=== PATIENT | female | born 1960 | race Caucasian/White ===

== ENCOUNTER 2018-08-29 11:48 | Emergency (ER) | payer OTHER ==
[2018-08-29 12:05] VITALS: TEMP 97.9; BMI 34.5
--- NOTE | 2018-08-29 12:59 | PDOC ---
History of Present Illness - General Chief Complaint: Headache Stated Complaint: LOWER BACK PAIN/ COUGHING History Source: Patient Exam Limitations: No Limitations - History of Present Illness Initial Comments: 08/29/18 12:59 57 yo F with a hx of HLD and HTN presents to the emergency department with right flank pain since Wednesday. Per the patient, she has never had pain like this before and denies hx of nephrolithiasis. Pain described as sharp, 7/10, constant, non radiating, without worsening and aggravating factors. She states that she has had a cough and headache since then and thinks she has the flu. Headache is frontal non radiating. When she coughs, she states a small amount of urine expels which is new for her. Denies trauma, dysuria, hematuria, increased urinary frequency, abdominal pain, diarrhea, hematochezia, and cholelithiasis/cholecystitis/cholecystectomy. Endorses hx of tubal ligation. Allergies: PCN Social: Denies tobacco, alcohol, and substance abuse. 08/29/18 13:02 Past History - Past Medical History Allergies/Adverse Reactions: Allergies Allergy/AdvReac Type Severity Reaction Status Date / Time Penicillins Allergy Verified 08/29/18 12:00 Home Medications: Ambulatory Orders Lisinopril 10 mg PO DAILY 08/29/18 Sulfamethoxazole/Trimethoprim [Bactrim Ds -] 1 tab PO BID #10 tablet 08/29/18 COPD: No HTN: Yes - Reproductive History Is Patient Now?: No - Immunization History Immunization Up to Date: Yes - Suicide/Smoking/Psychosocial Hx Smoking History: Never smoked Hx Alcohol Use: No Drug/Substance Use Hx: No *Physical Exam - Vital Signs Last Vital Signs Temp Pulse Resp BP Pulse Ox 97.9 F 70 18 171/54 H 100 08/29/18 12:01 08/29/18 12:01 08/29/18 12:01 08/29/18 12:01 08/29/18 12:01 ED Treatment Course - LABORATORY CBC & Chemistry Diagram: 08/29/18 13:50 08/29/18 13:50 *DC/Admit/Observation/Transfer Diagnosis at time of Disposition: UTI (urinary tract infection) Qualifiers: Urinary tract infection type: site unspecified Hematuria presence: without hematuria Qualified Code(s): N39.0 - Urinary tract infection, site not specified - Discharge Dispostion Disposition: HOME Decision to Admit order: No - Prescriptions Prescriptions: Sulfamethoxazole/Trimethoprim [Bactrim Ds -] 1 tab PO BID #10 tablet - Referrals Referrals: Elvis Olivas MD [Primary Care Provider] - - Patient Instructions Printed Discharge Instructions: DI for Urinary Tract Infection (UTI) Additional Instructions: you were seen for the evaluation of your left flank pain. you had no tenderness on examination and your urine shows that you have a urinary tract infection. please follow up with your primary medical doctor in 1 week after discharge. please return to the emergency department if you have worsening symptoms or new concerning symptoms such as fevers, chills, uncontrollable nausea and vomiting, - Post Discharge Activity Forms/Work/School Notes: Back to Work
[2018-08-29 13:27] LABS: EPI CELLS 2.2 /HPF (0-5/HPF); PH,URINE 5.5 (5.0-8.0); URINE APPEARANCE CLEAR; URINE BACTERIA 1.7 /hpf (NEGATIVE); URINE BILIRUBIN NEGATIVE (NEGATIVE); URINE CASTS 1 /lpf (0-8); URINE COLOR YELLOW; URINE GLUCOSE (UA) NEGATIVE (NEGATIVE); URINE KETONE NEGATIVE (NEGATIVE); URINE LEUK ESTERASE 1+ (NEGATIVE); URINE NITRITE NEGATIVE (NEGATIVE); URINE PROTEIN NEGATIVE (NEGATIVE); URINE RBC 1 /hpf (0-4); URINE UROBILINOGEN 0.2 mg/dL (0.2-1.0); URINE WBC 7 /hpf (0-5)
[2018-08-29] MEDS ORDERED: ACETAMINOPHEN 1000 MG/100 ML VIAL (NON FORMULARY) IVPB ONE (13:30)
[2018-08-29 14:03] LABS: EOS % 2.1 % (0-4.5); HEMATOCRIT 39.2 % (32.4-45.2); HEMOGLOBIN 13.4 GM/dL (10.7-15.3); LYMPH % 38.3 % (8-40); MCH 29.6 pg (25.7-33.7); MCHC 34.1 g/dl (32.0-36.0); MEAN CELL VOLUME 86.9 fl (80-96); MEAN PLT VOLUME 8.2 fl (7.5-11.1); MONO % 6.8 % (3.8-10.2); NEUT % 51.8 % (42.8-82.8); PLATELET COUNT 340 K/MM3 (134-434); RBC 4.51 M/mm3 (3.60-5.2); RDW 12.7 % (11.6-15.6); WHITE BLOOD COUNT 4.5 K/mm3 (4.0-10.0)
[2018-08-29 14:29] LABS: ALBUMIN 4.4 g/dl (3.4-5.0); BILIRUBIN,TOTAL 0.2 mg/dL (0.2-1); CALCIUM 10.1 mg/dL (8.5-10.1); CREATININE 0.8 mg/dL (0.55-1.3); POTASSIUM 4.1 mmol/L (3.5-5.1); TOT PROT 8.1 g/dl (6.4-8.2)
[2018-08-29] MEDS ORDERED: ACETAMINOPHEN INJECTION 100 ML IVPB ONE (14:51)
[2018-08-29] MEDS ORDERED: SULFAMETHOXAZOLE/TRIMETHOPRIM 800MG/160MG D.S. TABLET PO ONE (15:54)
[2018-08-29] MEDS ORDERED: SULFAMETHOXAZOLE/TRIMETHOPRIM 800MG/160MG D.S. TABLET ONE (15:58)
--- NOTE | 2018-08-29 15:58 | PDOC ---
Documentation entered by Joesph Guo SCRIBE, acting as scribe for Riley Mosher MD. Riley Mosher MD: This documentation has been prepared by the Sari martinez Matthew, SCRIBE, under my direction and personally reviewed by me in its entirety. I confirm that the documentation accurately reflects all work, treatment, procedures, and medical decision making performed by me. Attending Attestation - Resident Resident Name: Georges Hess - ED Attending Attestation I have performed the following: I have examined & evaluated the patient, The case was reviewed & discussed with the resident, I agree w/resident's findings & plan, Exceptions are as noted - HPI HPI: 08/29/18 13:38 Patient is a 57 year old female with a significant past medical history of HTN, HLD, who presents to the ED with complaints of right flank pain that began x3 days ago. Patient reports experiencing right flank pain that she states is a sharp 7/10 pain that does not radiate. She reports experiencing associated symptoms of head pain and cough with slight urinary incontinence with each cough which she states is new. Patient reports coming into the ED for further evaluation after symptoms did not subside over time. Denies chest pain, sob. Denies nausea, vomiting. Denies fevers, chills. Denies contact with sick individuals, out of state travelling. Denies dysuria, hematuria. Denies constipation, diarrhea. Denies any other symptoms. Allergies: Penicillin Social history: No smoking. No alcohol. No illicit drugs. Surgical history: None PMD: Dr. Olivas - Physicial Exam PE: 08/29/18 15:54 GENERAL: Awake, alert, and fully oriented, in no acute distress HEAD: No signs of trauma EYES: EOMI, sclera anicteric, conjunctiva clear ENT: Auricles normal inspection, hearing grossly normal, nares patent, Moist mucosa NECK: Normal ROM, supple, LUNGS: Breath sounds equal, clear to auscultation bilaterally. No wheezes, and no crackles HEART: Regular rate and rhythm, normal S1 and S2, no murmurs, rubs or gallops ABDOMEN: Soft, nontender, No guarding, no rebound. No masses No CVA tenderness EXTREMITIES: Normal range of motion, no edema. No clubbing or cyanosis. No cords, erythema, or tenderness NEUROLOGICAL: Cranial nerves II through XII grossly intact. Normal speech, normal gait SKIN: Warm, Dry, normal turgor, no rashes or lesions noted. - Medical Decision Making 08/29/18 15:54 A portion of this note was documented by scribe services under my direction. I have reviewed the details of the note, within reason, and agree with the documentation with the following case summary and management plan written by me. Patient treated in the ED. Nursing notes are reviewed and incorporated into the medical decision-making. Vital signs reviewed. Peripheral IV access obtained by the nurse, laboratory studies are drawn and sent, reviewed and interpreted by myself. Vital Signs Temp Pulse Resp BP Pulse Ox 97.9 F 70 18 171/54 H 100 08/29/18 12:01 08/29/18 12:01 08/29/18 12:01 08/29/18 12:08/29/18 12:01 57-year-old female with hypertension, hyperlipidemia presents with right lower back pain. Patient also reports a dry cough as well as a mild frontal tension- like headache for 3 days. Patient denies sick contact recent trauma. Stated that all these symptoms developed gradually over the last few days. No fevers or chills. Denies any abdominal pain or dysuria or urinary frequency. Patient does report a lower back pain, not flank pain. I suspect patient may potentially viral syndrome with that tension-like headache and dry cough. Patient lungs appear clear the chest x-ray reviewed by me, pending official radiology read telemetry subtle infiltrates. Patient's lower back along with 1+ leukocyte esterase may potentially rapidly cystitis. I' m not concerned for pyelonephritis at this time. We'll discharge with Bactrim and have the patient follow-up as an outpatient. After treatment, the patient reports feeling significantly better with Tylenol. CBC, BMP 08/29/18 13:50 08/29/18 13:50 CMP Sodium 135 mmol/L (136-145) L 08/29/18 13:50 Potassium 4.1 mmol/L (3.5-5.1) 08/29/18 13:50 Chloride 99 mmol/L (98-107) 08/29/18 13:50 Carbon Dioxide 31 mmol/L (21-32) 08/29/18 13:50 Anion Gap 6 MMOL/L (8-16) L 08/29/18 13:50 BUN 15 mg/dL (7-18) 08/29/18 13:50 Creatinine 0.8 mg/dL (0.55-1.3) 08/29/18 13:50 Est GFR (CKD-EPI)AfAm 94.85 08/29/18 13:50 Est GFR (CKD-EPI)NonAf 81.84 08/29/18 13:50 Random Glucose 95 mg/dL (74-106) 08/29/18 13:50 Calcium 10.1 mg/dL (8.5-10.1) 08/29/18 13:50 Total Bilirubin 0.2 mg/dL (0.2-1) 08/29/18 13:50 AST 29 U/L (15-37) 08/29/18 13:50 ALT 51 U/L (13-61) 08/29/18 13:50 Alkaline Phosphatase 76 U/L (45-117) 08/29/18 13:50 Total Protein 8.1 g/dl (6.4-8.2) 08/29/18 13:50 Albumin 4.4 g/dl (3.4-5.0) 08/29/18 13:50
[2018-08-29 16:08] VITALS: BP 152/78; PULSE 76
== END 2018-08-29 16:08 | disposition home or self-care (01) ==
LOC: JER 11:48
PROC: 3E033NZ Introduction of Analgesics, Hypnotics, Sedatives into Peripheral Vein, Percutaneous Approach (ICD-10-PCS; principal; 2018-08-29)
DX: N39.0 Urinary tract infection, site not specified (principal); I10 Essential (primary) hypertension
CPT/HCPCS: 36415; 71046-TC-FY; 80053; 81003; 85025; 87086; 99283-25; J0131

== ENCOUNTER 2019-02-16 10:33 | Emergency (ER) | payer OTHER ==
[2019-02-16 10:42] VITALS: BP 162/64; PULSE 63; TEMP 97.8; BMI 33.6
--- NOTE | 2019-02-16 11:51 | PDOC ---
History of Present Illness - General Chief Complaint: Injury Stated Complaint: INJURY Time Seen by Provider: 02/16/19 11:09 History Source: Patient Exam Limitations: Clinical Condition - History of Present Illness Initial Comments: 02/16/19 12:07 Patient with a past medical history of hypertension diabetes presented with complaint of frontal headache and left wrist and right midfoot pain status post trip and fall on outstretched hand on an hour ago hitting the front of her head. Patient denies loss of consciousness, blurry vision or change in vision. Denies nausea vomiting. Report mild headache and lightheadedness after fall. Patient report moderate tenderness to left wrist with mild tenderness to anterior right knee from fall. Denies problems with ambulation. Patient did not take anything for symptoms Occurred: reports: just prior to arrival Past History - Past Medical History Allergies/Adverse Reactions: Allergies Allergy/AdvReac Type Severity Reaction Status Date / Time Penicillins Allergy Verified 02/16/19 11:20 Home Medications: Ambulatory Orders Lisinopril 10 mg PO DAILY 08/29/18 Ibuprofen [Ibu] 600 mg PO Q8H PRN #20 tablet 02/16/19 Metformin HCl [Glucophage] 500 mg PO BID 02/16/19 Omeprazole Magnesium 40 mg PO DAILY 02/16/19 COPD: No Diabetes: Yes HTN: Yes - Immunization History Immunization Up to Date: Yes - Psycho Social/Smoking Cessation Hx Smoking History: Never smoked Have you smoked in the past 12 months: No Information on smoking cessation initiated: No Hx Alcohol Use: No Drug/Substance Use Hx: No Review of Systems - Review of Systems Able to Perform ROS?: Yes Is the patient limited Hungarian proficient: No Constitutional: Yes: Other (mild light headedness). No: Chills, Fever HEENTM: No: Symptoms Reported, See HPI, Eye Pain, Blurred Vision, Tearing, Recent change in vision, Double Vision, Cataracts, Ear Pain, Ocular Prothesis, Ear Discharge, Nose Pain, Nose Congestion, Tinnitus, Nose Bleeding, Hearing Loss , Throat Pain, Throat Swelling, Mouth Pain, Dental Problems, Difficulty Swallowing, Mouth Swelling, Other Respiratory: No: Symptoms reported, See HPI, Cough, Orthopnea, Shortness of Breath, SOB with Exertion, SOB at Rest, Stridor, Wheezing, Productive cough, Hemoptysis, Other Cardiac (ROS): No: Symptoms Reported, See HPI, Chest Pain, Edema, Irregular Heart Rate, Lightheadedness, Palpitations, Syncope, Chest Tightness, Other ABD/GI: No: Symptoms Reported, See HPI, Nausea, Vomiting Musculoskeletal: Yes: Symptoms Reported, See HPI, Joint Pain (left wrist pain), Muscle Pain (forehead pain), Muscle Weakness (right midfoot pain) Integumentary: No: Symptoms Reported, See HPI, Bruising, Change in Color, Flushing Neurological: Yes: Symptoms reported, See HPI, Headache (frontal headache). No : Numbness, Weakness, Dizziness All Other Systems: Reviewed and Negative *Physical Exam - Vital Signs Last Vital Signs Temp Pulse Resp BP Pulse Ox 97.8 F 63 16 162/64 99 02/16/19 10:39 02/16/19 10:39 02/16/19 10:39 02/16/19 10:39 02/16/19 10:39 - Physical Exam Comments: 02/16/19 11:51 GENERAL: Well developed, well nourished. Awake and alert. No acute distress. HEENT: Normocephalic, atraumatic. PERRLA, EOMI. No conjunctival pallor. Sclera are non- icteric. Moist mucous membranes. Oropharynx is clear. NECK: Supple. Full ROM. No JVD. CARDIOVASCULAR: Regular rate and rhythm. No murmurs, rubs, or gallops. PULMONARY: No evidence of respiratory distress. Lungs clear to auscultation bilaterally. No wheezing, rales or rhonchi. ABDOMINAL: Soft. Non-tender. Non-distended. No rebound or guarding. No organomegaly. Normoactive bowel sounds. MUSCULOSKELETAL Normal range of motion at all joints. No bony deformities or tenderness. . SKIN: Warm and dry. Normal capillary refill. No rashes. No bruising or ecchymosis to forehead. mild 1cm soft tissue swelling to mid-forehead. no swellling or bruising to left wrist, right knee or right foot. NEUROLOGICAL: Alert, awake, appropriate. Cranial nerves 2-12 intact. No deficits to light touch in face, upper extremities and lower extremities. No motor deficits in the in face, upper extremities and lower extremities. Normal speech. Gait is normal without ataxia. PSYCHIATRIC: Cooperative. Good eye contact. Appropriate mood and affect. General Appearance: Yes: Nourished, Appropriately Dressed. No: Apparent Distress ED Treatment Course - RADIOLOGY Radiology Studies Ordered: Category Date Time Status HEAD CT WITHOUT CONTRAST [CT] Stat CT Scan 02/16/19 11:21 Ordered FOOT-RIGHT [RAD] Stat Radiology 02/16/19 11:20 Ordered WRIST W/HAND-LEFT* [RAD] Stat Radiology 02/16/19 11:20 Ordered Medical Decision Making - Medical Decision Making 02/16/19 12:08 Patient with a past medical history of hypertension diabetes presented with complaint of frontal headache and left wrist and right midfoot pain status post trip and fall on outstretched hand on an hour ago hitting the front of her head. Patient denies loss of consciousness, blurry vision or change in vision. Denies nausea vomiting. Report mild headache and lightheadedness after fall. Patient report moderate tenderness to left wrist with mild tenderness to anterior right knee from fall. Denies problems with ambulation. Patient did not take anything for symptoms Exam significant for mild tenderness to medial aspect of right midfoot with no swelling or ecchymosis to foot. Moderate tenderness to dorsal aspect of left wrist with no swelling to wrist. Full range of motion of left wrist and hand. No tenderness to left hand. 5 out of 5 strength to left hand. Mild 1 cm soft tissue swelling to anterior forehead. No bruising deformity. Normal neuro exam. Symptoms likely wrist and foot sprain with head contusion. X-ray of left wrist and hand and right foot ordered to rule out acute fracture. Head CT without contrast ordered to rule out intracranial bleeding. Patient be discharged home on Tylenol as needed for pain if negative imaging. Tylenol 650 mg p.o. ordered for pain 02/16/19 13:14 X-ray of left wrist and right foot shows no acute fracture or dislocation. Head CT shows no acute bleed or intracranial pathology. Patient asymptomatic and stable for discharge to take Motrin as needed for pain with strict instructions to follow-up if worsening headache with vomiting. Patient voiced understanding of follow-up instructions and stable for discharge Discharge - Discharge Information Problems reviewed: Yes Clinical Impression/Diagnosis: Right foot pain Head contusion Qualifiers: Encounter type: initial encounter Contusion of head detail: unspecified part of head Qualified Code(s): S00.93XA - Contusion of unspecified part of head, initial encounter Left wrist sprain Qualifiers: Encounter type: initial encounter Qualified Code(s): S63.502A - Unspecified sprain of left wrist, initial encounter Condition: Stable Disposition: HOME - Admission No - Additional Discharge Information Prescriptions: Ibuprofen [Ibu] 600 mg PO Q8H PRN #20 tablet PRN Reason: pain - Follow up/Referral Referrals: Marquez Pina MD [Staff Physician] - - Patient Discharge Instructions Patient Printed Discharge Instructions: DI for Concussion, DI for Wrist Sprain , DI for Post-traumatic Headache Additional Instructions: Your x-ray of left wrist and foot was normal and shows no fracture dislocation. Your head CAT scan shows no bleeding. Your symptoms likely caused by wrist and foot sprain with head contusion. Take prescribed Motrin as needed for pain. Apply cold compress today and switch warm compress tomorrow as needed for swelling to forehead. Rest of left wrist. Come back to emergency room if worsening headache, blurry vision, change in vision, severe dizziness with nausea vomiting - Post Discharge Activity Work/Back to School Note: Back to Work
[2019-02-16] MEDS ORDERED: ACETAMINOPHEN 325 MG TABLET (FP) PO ONE (12:11)
[2019-02-16] MEDS ORDERED: ACETAMINOPHEN 325 MG TABLET (FP) ONE (12:18)
== END 2019-02-16 13:00 | disposition home or self-care (01) ==
LOC: JER 10:33
DX: S00.83XA Contusion of other part of head, initial encounter (principal); G44.319 Acute post-traumatic headache, not intractable; S63.502A Unspecified sprain of left wrist, initial encounter; M79.641 Pain in right hand; W01.0XXA Fall on same level from slipping, tripping and stumbling without subsequent striking against object, initial encounter; Y93.89 Activity, other specified; Y92.69 Other specified industrial and construction area as the place of occurrence of the external cause; Y99.0 Civilian activity done for income or pay; I10 Essential (primary) hypertension; E78.00 Pure hypercholesterolemia, unspecified; Z11.9 Encounter for screening for infectious and parasitic diseases, unspecified; Z79.84 Long term (current) use of oral hypoglycemic drugs; Z88.0 Allergy status to penicillin
CPT/HCPCS: 70450-TC; 73110-TC-LT-FY; 73130-TC-LT-FY; 73630-TC-RT-FY; 99282-25